=== PATIENT | female | born 1995 | race Caucasian/White ===

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

== ENCOUNTER 2017-05-30 11:33 | Emergency (ER) | payer OTHER ==
--- NOTE | 2017-05-30 11:48 | ED Physician Documentation ---
Upper Respiratory Symptoms - HISTORIAN Historian: patient - HPI Stated Complaint: cough fever last night Chief Complaint: Fever Onset: days ago (2) Duration: sudden-Onset Context: denies: recent foreign travel, insect bite(s) Severity: mild Associated Symptoms: fever, chills, sweating, runny nose Further Comments: yes (She states she and children (who are being see today as well) have had fever last night, cough, congestion and vomiting x 1 day . She has not tried any OTC meds) - ROS CONST/EYES: denies: weakness CVS/RESP: denies: chest pain, shortness of breath LYMPH: denies: rash GI/: vomiting, nausea NEURO/PSYCH: denies: fainting, dizziness MS/SKIN: denies: rash - PAST HX Lung Disease: asthma PE Risk Factors: none Surgeries/Procedures: none Immunizations: UTD Allergies/Adverse Reactions: Allergies Allergy/AdvReac Type Severity Reaction Status Date / Time No Known Allergies Allergy Verified 05/30/17 12:20 Home Medications: Ambulatory Orders Medication Instructions Recorded NK [NK] 05/30/17 - SOCIAL HX Smoking History: cigarettes Alcohol Use: none Drug Use: none - FAMILY HX Family History: none - VITAL SIGNS Vital Signs: Vital Signs Temp Pulse Resp BP Pulse Ox 98.5 F 118 H 19 123/73 97 05/30/17 11:46 05/30/17 11:46 05/30/17 11:46 05/30/17 11:46 05/30/17 11:46 - REVIEWED ASSESSMENTS Nursing Assessment Reviewed: Yes Vitals Reviewed: Yes ED Results Lab/Radiology - Lab Results Lab Results: Lab Results 05/30/17 12:20 Influenza A (Rapid) Positive H (NEGATIVE) Influenza B (Rapid) Negative (NEGATIVE) - Orders Orders: ED Orders Category Date Time Status INFLUENZA A&B Stat Lab 05/30/17 12:20 Completed Upper Respiratory Symptoms - EXAM General Appearance: no acute distress, alert EENT: eyes nml inspection Neck: normal inspection Respiratory: no resp. distress, breath sounds nml Abdomen: non-tender, nml bowel sounds CVS: reg rate & rhythm, heart sounds normal, no murmur Skin: color nml, no rash Extremities: non-tender Neuro/Psych: oriented x3 Discharge Clincal Impression: Influenza A Referrals: Primary Doctor,No [Primary Care Provider] - 2 Days Additional Instructions: Tamiflu as prescribed OTC meds for treatment of symptoms Return to PCP OR ER for any concerning symptoms Condition: Stable Disposition: 01 HOME, SELF-CARE Decision to Admit: NO Date of Decison to Admit: 05/30/17 Decision Time: 12:38
[2017-05-30 13:35] VITALS: BP 126/76
== END 2017-05-30 13:01 | disposition home or self-care (01) ==
LOC: ED 11:33
DX: J09.X2 Influenza due to identified novel influenza A virus with other respiratory manifestations (principal)
CPT/HCPCS: 87400; 99282